=== PATIENT | female | born 1990 | race Caucasian/White ===

== ENCOUNTER 2017-08-13 15:03 | Emergency (ER) | payer OTHER ==
[2017-08-13 15:20] VITALS: BMI 26.3
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
[2017-08-13 16:59] LABS: HEMOGLOBIN 9.2 GM/dL (10.7-15.3); MCH 32.4 pg (25.7-33.7); MCHC 33.9 g/dl (32.0-36.0); MEAN CELL VOLUME 95.5 fl (80-96); MEAN PLT VOLUME 8.7 fl (7.5-11.1); PLATELET COUNT 264 K/MM3 (134-434); RBC 2.82 M/mm3 (3.60-5.2); RDW 12.3 % (11.6-15.6); WHITE BLOOD COUNT 11.8 K/mm3 (4.0-10.0)
[2017-08-13 17:09] LABS: ALBUMIN 2.6 g/dl (3.4-5.0); ANION GAP 8 (8-16); BLOOD UREA NITROGEN 10 mg/dL (7-18); CALCIUM 8.1 mg/dL (8.5-10.1); CHLORIDE 106 mmol/L (98-107); CO2 25 mmol/L (21-32); CREATININE 0.5 mg/dL (0.55-1.02); GLUCOSE,RANDOM 106 mg/dL (74-106); POTASSIUM 3.5 mmol/L (3.5-5.1); SGOT/AST 13 U/L (15-37); SGPT/ALT 25 U/L (12-78); SODIUM 139 mmol/L (136-145); TOT PROT 5.8 g/dl (6.4-8.2)
[2017-08-13 17:23] LABS: ALK PHOS 105 U/L (45-117)
[2017-08-13 17:26] LABS: BILIRUBIN,TOTAL < 0.1 mg/dL (0.2-1.0)
[2017-08-13 17:28] LABS: ARTERIAL BLD GAS O2 SATURATION 97.7 % (90-98.9); ARTERIAL BLOOD GAS BASE EXCESS 0.5 meq/l (-2-2); ARTERIAL BLOOD GAS PCO2 34.3 mmHg (35-45); ARTERIAL BLOOD GAS pH 7.45 (7.35-7.45)
[2017-08-13 17:29] LABS: ALLENS TEST POSITIVE
[2017-08-13 17:30] LABS: CARBOXYHEMOGLOBIN 1.8 gm% (0.5-2.0)
[2017-08-13 17:37] LABS: URINE APPEARANCE CLEAR; URINE BILIRUBIN NEGATIVE (<2.0 mg/dL); URINE BLOOD NEGATIVE (NEGATIVE); URINE COLOR LTYELLOW; URINE GLUCOSE (UA) NEGATIVE (NEGATIVE); URINE KETONE NEGATIVE (NEGATIVE); URINE LEUK ESTERASE NEGATIVE (NEGATIVE); URINE NITRITE NEGATIVE (NEGATIVE); URINE PROTEIN NEGATIVE (NEGATIVE); URINE UROBILINOGEN NEGATIVE mg/dL (0.2-1.0)
[2017-08-13 18:07] LABS: PLATELET ESTIMATE ADEQUATE
[2017-08-13 18:41] VITALS: BP 117/64; PULSE 102; TEMP 99.5
[2017-08-13] MEDS ORDERED: DEXTROSE 5%-LACTATED RINGERS 1,000 ML IV ONE (19:45)
[2017-08-13] MEDS ORDERED: ACETAMINOPHEN 325 MG TABLET (FP) ONE (20:29)
[2017-08-13] MEDS ORDERED: ACETAMINOPHEN 325 MG TABLET (FP) PO ONE (20:45)
--- NOTE | 2017-08-14 16:12 | EKG ---
Test Reason : Blood Pressure : / mmHG Vent. Rate : 101 BPM Atrial Rate : 101 BPM P-R Int : 140 ms QRS Dur : 084 ms QT Int : 324 ms P-R-T Axes : 056 061 051 degrees QTc Int : 420 ms SINUS TACHYCARDIA LEFT ATRIAL ENLARGEMENT OTHERWISE NORMAL ECG NO PREVIOUS ECGS AVAILABLE Confirmed by MD MARGIE, CARLOS ([id number]) on 08/14/2017 4:11:40 PM Referred By: Confirmed By:CARLOS HANSON MD
== END 2017-08-13 22:45 | disposition home or self-care (01) ==
LOC: JER 15:03
PROC: 3E0337Z Introduction of Electrolytic and Water Balance Substance into Peripheral Vein, Percutaneous Approach (ICD-10-PCS; principal; 2017-08-13)
DX: O99.89 Other specified diseases and conditions complicating pregnancy, childbirth and the puerperium (principal); T59.811A Toxic effect of smoke, accidental (unintentional), initial encounter; J70.5 Respiratory conditions due to smoke inhalation; Y92.038 Other place in apartment as the place of occurrence of the external cause; Z3A.33 33 weeks gestation of pregnancy
CPT/HCPCS: 36415; 36600; 76816-TC; 76830-TC; 80053; 81003; 82375; 82803; 83050; 84702; 85025; 93005; 93010; 96360; 96361; 99285-25

== ENCOUNTER 2017-09-26 07:02 | Inpatient (IN) | payer OTHER ==
[2017-09-26] MEDS: OXYTOCIN 20 UNITS in 0.9% NS 20 UNIT/1,000 ML INFUS.BAG IV SCH ×2 (07:16→09:00)
[2017-09-26 07:53] VITALS: BMI 28.3
[2017-09-26] MEDS ORDERED: WITCH HAZEL 50% (TUCKS) 40 PAD/JAR PAD TP PRN (07:54)
[2017-09-26] MEDS ORDERED: BENZOCAINE 20% 57 GM BOTTLE TP PRN (07:54)
[2017-09-26] MEDS ORDERED: BISACODYL 10 MG SUPP.RECT RC PRN (07:54)
[2017-09-26] MEDS ORDERED: BENZOCAINE 28 GM HEMORRHOIDAL OINTMENT PR PRN (07:54)
[2017-09-26] MEDS ORDERED: METHYLERGONOVINE MALEATE 0.2 MG/1 ML AMP IM PRN (07:54)
--- NOTE | 2017-09-26 07:58 | HP ---
Past Medical History - Primary Care Physician PCP:: Laurie Wynn - Admission Chief Complaint: LAbor History of Present Illness: 27 EDC 09/29/17 EGA 39.4 weeks who came in fully dilated in labor with hx short cervix on progesterone History Source: Patient - Past Medical History ...: 2 ...Para: 1 ...Term: 1 ...: 0 ...Spon : 0 ...Induced : 0 ...Multiple Gestation: 0 ...LMP: 12/31/16 ... Weeks Gestation by Dates: 38.3 ...EDC by Dates: 10/07/17 ...EDC by Sono: 09/29/17 - Past Surgical History Past Surgical History: Yes: None Hx Myomectomy: No Hx Transabdominal Cerclage: No - Smoking History Smoking history: Never smoked Have you smoked in the past 12 months: No - Alcohol/Substance Use Hx Alcohol Use: No History of Substance Use: reports: None - Social History Usual Living Arrangement: Yes: With Spouse History of Recent Travel: No Home Medications - Allergies Allergies/Adverse Reactions: Allergies Allergy/AdvReac Type Severity Reaction Status Date / Time No Known Allergies Allergy Verified 08/13/17 18:38 - Home Medications Home Medications: Ambulatory Orders Vit/Iron Fum/Folic AC [ Tablet] 1 tab PO DAILY 08/10/17 Progesterone, Micronized [Progesterone] 200 mg PO DAILY 08/10/17 Review of Systems - Review of Systems Constitutional: reports: No Symptoms Eyes: reports: No Symptoms HENT: reports: No Symptoms Neck: reports: No Symptoms Cardiovascular: reports: No Symptoms Respiratory: reports: No Symptoms Gastrointestinal: reports: No Symptoms Genitourinary: reports: No Symptoms Breasts: reports: No Symptoms Reported Musculoskeletal: reports: No Symptoms Integumentary: reports: No Symptoms Neurological: reports: No Symptoms Endocrine: reports: No Symptoms Hematology/Lymphatic: reports: No Symptoms Psychiatric: reports: No Symptoms Hemorrhage Risk Assessment - Risk Factors Risk Score: 0 Risk Level: Low Risk Problem List - Problems (1) Labor established Code(s): [id number] - Assessment/Plan iup at 39.4 week labor Plan precipatous delivery
[2017-09-26] MEDS ORDERED: ACETAMINOPHEN 325 MG TABLET (FP) ONE (08:12)
[2017-09-26] MEDS ORDERED: IBUPROFEN 600 MG TABLET (FP) PO ONE (08:12)
[2017-09-26] MEDS: IBUPROFEN 600 MG TABLET (FP) PO PRN ×2 (08:14→15:32)
[2017-09-26] MEDS: ACETAMINOPHEN 325 MG TABLET (FP) PO PRN ×2 (08:15→15:32)
[2017-09-26 08:19] LABS: BASO % 0.2 % (0-2.0); EOS % 0.3 % (0-4.5); HEMATOCRIT 31.8 % (32.4-45.2); HEMOGLOBIN 10.8 GM/dL (10.7-15.3); LYMPH % 18.9 % (8-40); MCH 31.7 pg (25.7-33.7); MEAN PLT VOLUME 9.2 fl (7.5-11.1); MONO % 4.1 % (3.8-10.2); NEUT % 76.5 % (42.8-82.8); PLATELET COUNT 206 K/MM3 (134-434); RBC 3.42 M/mm3 (3.60-5.2); RDW 12.8 % (11.6-15.6); WHITE BLOOD COUNT 11.8 K/mm3 (4.0-10.0)
[2017-09-26 08:28] LABS: INR 0.98 (0.82-1.09); PROTHROMBIN TIME (PATIENT) 11.1 SEC (9.7-13.0)
[2017-09-26 08:31] LABS: ACTIVATED PTT 23.8 SECONDS (26.9-34.4)
[2017-09-26 08:32] LABS: ARTERIAL BLD GAS O2 SATURATION 22.2 % (90-98.9); ARTERIAL BLOOD GAS PCO2 48.3 mmHg (35-45); ARTERIAL BLOOD GAS pH 7.32 (7.35-7.45)
[2017-09-26 08:33] LABS: ARTERIAL BLOOD GAS BASE EXCESS -2.1 meq/l (-2-2)
[2017-09-26] MEDS ORDERED: OXYTOCIN 20 UNITS in 0.9% NS 20 UNIT/1,000 ML INFUS.BAG IV ONE (08:34)
[2017-09-26 08:35] LABS: VENOUS PC02 37.4 mmHg (38-52); VENOUS PH 7.4 (7.32-7.42); VENOUS PO2 27.8 mmHg (28-48)
[2017-09-26 08:37] LABS: ANION GAP 11 (8-16); BLOOD UREA NITROGEN 8 mg/dL (7-18); CALCIUM 8.2 mg/dL (8.5-10.1); CHLORIDE 106 mmol/L (98-107); CO2 21 mmol/L (21-32); CREATININE 0.8 mg/dL (0.55-1.02); GLUCOSE,RANDOM 83 mg/dL (74-106); SODIUM 138 mmol/L (136-145)
[2017-09-26 08:38] LABS: ARTERIAL BLOOD GAS PO2 15.6 mmHg (80-100)
--- NOTE | 2017-09-26 09:38 | PN ---
Delivery - Delivery Vaginal Delivery: No Problems (Precipitous delivery laborist delivered) Type of Anesthesia: None Episiotomy/Laceration: None EBL (cc): 300 Delivery, Single - Stages of Labor Date 1st Stage Initiatied: 09/26/17 Time 1st Stage Initiated: 06:00 Date of Delivery: 09/26/17 Time of Delivery: 07:05 Time Placenta Delivered: 07:16 Placenta: Yes: Spontaneous - Condition of Infant Associate Programmer Analyst/Occupational Safety And Health Manager Present: No Gender: Female Weight: 7 lb 1 oz Position: Right, OA Total Hours ROM (Hrs/Mins): 0hrs 46min - 1 Minute Total Score: 9 5 Minutes Total Score: 9 - Feeding Plan Initial Plan: Elected not to breastfeed exclusively throughout hospitalization
[2017-09-26] MEDS ORDERED: DIPHTH,PERTUSS(ACELL),TET 0.5 ML DISP.SYRIN IM ONE (22:00)
[2017-09-27 08:58] LABS: BASO % 0.3 % (0-2.0); EOS % 0.8 % (0-4.5); HEMATOCRIT 28.4 % (32.4-45.2); HEMOGLOBIN 9.6 GM/dL (10.7-15.3); LYMPH % 29.7 % (8-40); MCH 31.8 pg (25.7-33.7); MCHC 33.8 g/dl (32.0-36.0); MEAN CELL VOLUME 93.9 fl (80-96); MONO % 4.6 % (3.8-10.2); NEUT % 64.6 % (42.8-82.8); PLATELET COUNT 179 K/MM3 (134-434); RBC 3.03 M/mm3 (3.60-5.2); RDW 13.3 % (11.6-15.6); WHITE BLOOD COUNT 9.9 K/mm3 (4.0-10.0)
--- NOTE | 2017-09-27 10:14 | PN ---
Post Note - Post Date of Delivery: 09/26/17 Post Day: 1 Vital Signs: Vital Signs - 24 hr 09/26/17 09/26/17 09/26/17 14:00 18:00 21:38 Temperature 98.5 F 98.8 F 98.4 F Pulse Rate 67 98 H 67 Respiratory 20 18 18 Rate Blood Pressure 120/57 117/63 131/64 09/27/17 09/27/17 09/27/17 02:00 06:00 08:30 Temperature 98.2 F 98.1 F 98.4 F Pulse Rate 56 L 60 78 Respiratory 18 20 18 Rate Blood Pressure 114/67 115/69 118/71 Labs: Laboratory Results - last 24 hr 09/27/17 08:00 WBC 9.9 RBC 3.03 L Hgb 9.6 L D Hct 28.4 L MCV 93.9 MCH 31.8 MCHC 33.8 RDW 13.3 Plt Count 179 MPV 9.0 Neutrophils % 64.6 Lymphocytes % 29.7 D Monocytes % 4.6 Eosinophils % 0.8 D Basophils % 0.3 - Subjective Subjective: No Complaints - Objective Afebrile: Yes Breast: Not engorged Abdomen: Soft, Non-tender Uterus: Fundus firm Vagina: Scant lochia Extremities: Non-tender - Assessment/Plan (1) Labor established Assessment: S/P Normal , Other (anemia - 28 %) Plan: Routine Care
[2017-09-27] MEDS: ACETAMINOPHEN 325 MG TABLET (FP) PO PRN (16:08)
[2017-09-27] MEDS: IBUPROFEN 600 MG TABLET (FP) PO PRN (16:09)
[2017-09-27 22:16] VITALS: TEMP 98.3
[2017-09-28 09:36] VITALS: BP 117/71; PULSE 74
== END 2017-09-28 12:00 | disposition home or self-care (01) | DRG 560 ==
LOC: JLDR 07:02 → J3W 09:30
PROVIDERS: ADMIT Obstetrics & Gynecology; ATTEND Obstetrics & Gynecology
PROC: 10E0XZZ Delivery of Products of Conception, External Approach (ICD-10-PCS; principal; 2017-09-26)
DX: O62.3 Precipitate labor (principal); O26.873 Cervical shortening, third trimester; O99.02 Anemia complicating childbirth; D64.9 Anemia, unspecified; Z3A.39 39 weeks gestation of pregnancy; Z37.0 Single live birth
CPT/HCPCS: 36415; 36600; 59409; 80048; 82803; 85025; 85610; 85730; 86480; 86593; 86850; 86900; 86901; 90715

== ENCOUNTER 2019-01-23 05:45 | Emergency (ER) | payer OTHER ==
[2019-01-23 06:14] VITALS: BMI 22.6
[2019-01-23] MEDS ORDERED: SODIUM CHLORIDE 1,000 ML IV STA (06:15)
[2019-01-23] MEDS ORDERED: ONDANSETRON 4 MG/2 ML VIAL IVPUSH ONE (06:15)
[2019-01-23] MEDS ORDERED: morphine CARPU-JECT 4 MG/1 ML DISP.SYRIN IVPUSH ONE (06:15)
--- NOTE | 2019-01-23 06:16 | PDOC ---
History of Present Illness - General Chief Complaint: Pain, Acute Stated Complaint: ABD PAIN, VOMITING Time Seen by Provider: 01/23/19 06:15 History Source: Patient Exam Limitations: No Limitations - History of Present Illness Travel History: No Initial Comments: 01/23/19 06:17 HISTORY OF PRESENT ILLNESS: 28-year-old woman and denies medical history presents emergency department for evaluation of sudden onset epigastric and right upper quadrant pain starting at approximately 4:00 this morning. Patient reports the pain was 8/10 which she describes as a squeezing pulling sensation which woke her from sleep at approximately 4 AM. She reports she felt mild nausea with vomiting of undigested food which was nonbilious nonbloody. Patient denies fevers, chills, chest pain, shortness of breath, dysuria, hematuria, rectal bleeding, constipation, diarrhea, vaginal bleeding or vaginal discharge. LMP 12/29/18. No recent travel or sick contacts. PAST MEDICAL HISTORY: Denies past medical history SURGICAL HISTORY: Denies ALLERGIES: No known drug allergies REVIEW OF SYSTEMS General/Constitutional: Denies fever or chills. Denies weakness, weight change. HEENT: Denies change in vision. Denies ear pain or discharge. Denies sore throat. Cardiovascular: Denies chest pain or shortness of breath. Respiratory: Denies cough, wheezing, or hemoptysis. Gastrointestinal: see HPI Genitourinary: Denies dysuria, frequency, or change in urination. Musculoskeletal: Denies joint or muscle swelling or pain. Denies neck or back pain. Skin and breasts: Denies rash or easy bruising. Neurologic: Denies headache, vertigo, loss of consciousness, or loss of sensation. Psychiatric: Denies depression or anxiety. Endocrine: Denies increased thirst. Denies abnormal weight change. Hematologic/Lymphatic: Denies anemia, easy bleeding, or history of blood clots. Allergic/Immunologic: Denies hives or skin allergy. Denies latex allergy. PHYSICAL EXAM General Appearance: Well-appearing, appropriately dressed. No apparent distress , no intoxication. Respiratory/Chest: Lungs CTAB. No shortness of breath, chest tenderness, respiratory distress, accessory muscle use. No crackles, rales, rhonchi, stridor , wheezing, dullness Cardiovascular: RRR. S1, S2. No JVD, murmur, bradycardia, tachycardia. Gastrointestinal/Abdominal: Normal bowel sounds. Abdomen soft, non-distended. Abdomen tender in the epigastrium and right upper quadrant. Guarding present. No organomegaly, pulsatile mass, hernia, hepatomegaly, splenomegaly. Integumentary: Appropriate color, dry, warm. No cyanosis, erythema, jaundice or rash Past History - Past Medical History Allergies/Adverse Reactions: Allergies Allergy/AdvReac Type Severity Reaction Status Date / Time No Known Allergies Allergy Verified 09/26/17 08:17 Home Medications: Ambulatory Orders Vit/Iron Fum/Folic AC [ Tablet] 1 tab PO DAILY 08/10/17 Ibuprofen [Motrin -] 600 mg PO QID #28 tablet 09/27/17 Asthma: No Cancer: No Cardiac Disorders: No CVA: No COPD: No Diabetes: No HTN: No Seizures: No Thyroid Disease: No - Suicide/Smoking/Psychosocial Hx Smoking History: Current some day smoker Have you smoked in the past 12 months: No Information on smoking cessation initiated: No Hx Alcohol Use: No Drug/Substance Use Hx: No Hx Substance Use Treatment: No *Physical Exam - Vital Signs Last Vital Signs Temp Pulse Resp BP Pulse Ox 98.1 F 89 18 123/72 100 01/23/19 05:58 01/23/19 05:58 01/23/19 05:58 01/23/19 05:58 01/23/19 05:58 ED Treatment Course - LABORATORY CBC & Chemistry Diagram: 01/23/19 06:27 01/23/19 06:27 Medical Decision Making - Medical Decision Making 01/23/19 06:20 A/P: 28-year-old woman with right upper quadrant pain Differential diagnosis includes but is not limited to-gallstones, cholecystitis , pancreatitis, GERD, pneumonia, musculoskeletal pain CBC, CMP, lipase Urinalysis, urine culture, urine GB ultrasound EKG Normal saline 1 L IV bolus Morphine 4 mg IV Zofran 4 mg IV Reassess 01/23/19 07:10 Pt signed out to SAGAR Montilla. *DC/Admit/Observation/Transfer Diagnosis at time of Disposition: RUQ abdominal pain - Referrals Referrals: Tim Sterling MD [Primary Care Provider] - - Patient Instructions - Post Discharge Activity
--- NOTE | 2019-01-23 06:16 | PDOC ---
*Physical Exam - Vital Signs Last Vital Signs Temp Pulse Resp BP Pulse Ox 98.1 F 89 18 123/72 100 01/23/19 05:58 01/23/19 05:58 01/23/19 05:58 01/23/19 05:58 01/23/19 05:58 Medical Decision Making - Medical Decision Making 01/23/19 06:16 Patient seen by the advanced practice provider under my direct supervision. Ancillary testing reviewed as necessary. I agree with plan as outlined by the advanced practice provider. *DC/Admit/Observation/Transfer Diagnosis at time of Disposition: RUQ abdominal pain - Referrals Referrals: Tim Sterling MD [Primary Care Provider] - - Patient Instructions - Post Discharge Activity
[2019-01-23] MEDS ORDERED: morphine SULFATE 4 MG/ML VIAL ONE (06:29)
[2019-01-23] MEDS ORDERED: ONDANSETRON 4 MG/2 ML VIAL ONE (06:30)
[2019-01-23 06:33] LABS: BASO % 0.3 % (0-2.0); EOS % 1.8 % (0-4.5); HEMATOCRIT 34.6 % (32.4-45.2); HEMOGLOBIN 11.6 GM/dL (10.7-15.3); LYMPH % 26.2 % (8-40); MCH 29.8 pg (25.7-33.7); MCHC 33.6 g/dl (32.0-36.0); MEAN CELL VOLUME 88.7 fl (80-96); MEAN PLT VOLUME 8.6 fl (7.5-11.1); MONO % 5.5 % (3.8-10.2); NEUT % 66.2 % (42.8-82.8); PLATELET COUNT 261 K/MM3 (134-434); RDW 13.5 % (11.6-15.6); WHITE BLOOD COUNT 7.5 K/mm3 (4.0-10.0)
[2019-01-23 06:50] LABS: ALBUMIN 3.7 g/dl (3.4-5.0); BILIRUBIN,TOTAL 0.3 mg/dL (0.2-1); BLOOD UREA NITROGEN 14.8 mg/dL (7-18); CALCIUM 8.6 mg/dL (8.5-10.1); CREATININE 0.8 mg/dL (0.55-1.3); POTASSIUM 3.8 mmol/L (3.5-5.1); TOT PROT 6.6 g/dl (6.4-8.2)
--- NOTE | 2019-01-23 07:28 | PDOC ---
*Physical Exam - Vital Signs Last Vital Signs Temp Pulse Resp BP Pulse Ox 98.1 F 89 18 123/72 100 01/23/19 05:58 01/23/19 05:58 01/23/19 05:58 01/23/19 05:58 01/23/19 05:58 <Gigi Duran - Last Filed: 01/23/19 07:44> - Vital Signs Last Vital Signs Temp Pulse Resp BP Pulse Ox 98.1 F 89 18 123/72 100 01/23/19 05:58 01/23/19 05:58 01/23/19 05:58 01/23/19 05:58 01/23/19 05:58 - Physical Exam General Appearance: Yes: Appropriately Dressed. No: Apparent Distress Neck: positive: Supple Respiratory/Chest: negative: Respiratory Distress Gastrointestinal/Abdominal: positive: Normal Bowel Sounds, Soft. negative: Tender, Distended, Guarding, Rebound Musculoskeletal: negative: CVA Tenderness Integumentary: positive: Dry, Warm Neurologic: positive: Fully Oriented, Alert, Normal Mood/Affect <Jamil Montilla - Last Filed: 01/23/19 10:27> Heart Score/ECG Review #1 ECG reviewed & interpreted by me at: 07:29 General ECG Interpretation: Sinus Rhythm, Normal Rate (73), Normal Intervals ( qtc 431), No acute ischemic changes <Gigi Duran - Last Filed: 01/23/19 07:44> ED Treatment Course - LABORATORY CBC & Chemistry Diagram: 01/23/19 06:27 01/23/19 06:27 - ADDITIONAL ORDERS Additional order review: Laboratory Results 01/23/19 01/23/19 06:27 06:27 Sodium 142 Potassium 3.8 Chloride 107 Carbon Dioxide 27 Anion Gap 8 BUN 14.8 Creatinine 0.8 Est GFR (CKD-EPI)AfAm 117.93 Est GFR (CKD-EPI)NonAf 101.75 Random Glucose 99 Calcium 8.6 Total Bilirubin 0.3 AST 115 H ALT 84 H Alkaline Phosphatase 82 Total Protein 6.6 Albumin 3.7 Lipase 101 01/23/19 06:27 RBC 3.90 MCV 88.7 MCHC 33.6 RDW 13.5 MPV 8.6 Neutrophils % 66.2 Lymphocytes % 26.2 Monocytes % 5.5 Eosinophils % 1.8 D Basophils % 0.3 - Medications Given in the ED: ED Medications Discontinued Medications Generic Name Dose Route Start Last Admin Trade Name Freq PRN Reason Stop Dose Admin Sodium Chloride 1,000 mls @ 1,000 mls/hr 01/23/19 06:15 01/23/19 06:34 Normal Saline - IV 01/23/19 07:14 1,000 mls/hr ASDIR STA Administration Morphine Sulfate 4 mg 01/23/19 06:15 01/23/19 06:33 Morphine Injection - IVPUSH 01/23/19 06:16 4 mg ONCE ONE Administration Ondansetron HCl 4 mg 01/23/19 06:15 01/23/19 06:34 Zofran Injection IVPUSH 01/23/19 06:16 4 mg ONCE ONE Administration <Gigi Duran - Last Filed: 01/23/19 07:44> - LABORATORY CBC & Chemistry Diagram: 01/23/19 06:27 01/23/19 06:27 - ADDITIONAL ORDERS Additional order review: Laboratory Results 01/23/19 01/23/19 06:27 06:27 Sodium 142 Potassium 3.8 Chloride 107 Carbon Dioxide 27 Anion Gap 8 BUN 14.8 Creatinine 0.8 Est GFR (CKD-EPI)AfAm 117.93 Est GFR (CKD-EPI)NonAf 101.75 Random Glucose 99 Calcium 8.6 Total Bilirubin 0.3 AST 115 H ALT 84 H Alkaline Phosphatase 82 Total Protein 6.6 Albumin 3.7 Lipase 101 01/23/19 06:27 RBC 3.90 MCV 88.7 MCHC 33.6 RDW 13.5 MPV 8.6 Neutrophils % 66.2 Lymphocytes % 26.2 Monocytes % 5.5 Eosinophils % 1.8 D Basophils % 0.3 - Medications Given in the ED: ED Medications Discontinued Medications Generic Name Dose Route Start Last Admin Trade Name Freq PRN Reason Stop Dose Admin Sodium Chloride 1,000 mls @ 1,000 mls/hr 01/23/19 06:15 01/23/19 06:34 Normal Saline - IV 01/23/19 07:14 1,000 mls/hr ASDIR STA Administration Morphine Sulfate 4 mg 01/23/19 06:15 01/23/19 06:33 Morphine Injection - IVPUSH 01/23/19 06:16 4 mg ONCE ONE Administration Ondansetron HCl 4 mg 01/23/19 06:15 01/23/19 06:34 Zofran Injection IVPUSH 01/23/19 06:16 4 mg ONCE ONE Administration <IrishJamil - Last Filed: 01/23/19 10:27> Medical Decision Making - Medical Decision Making 01/23/19 07:27 Pt signed out to me at 7 AM Patient is a 28-year-old female, no significant history, here with right upper quadrant and epigastric pain. Per prior team, patient appeared very uncomfortable on initial eval and has since been given pain meds. Labs and ultrasound pending 01/23/19 09:24 Pt s/p RUQ sono. On reassessment, states pain has since resolved with meds. No additional sxs at this time. Abdomen benign on rpt exam. Labs unremarkable. UA pending 01/23/19 10:24 US read as neg. Pt remains asx at this time w/ benign abd. Will dc w/ pepcid and maalox for ? gastritis. To f/u with her PMD <Jamil Montilla - Last Filed: 01/23/19 10:27> *DC/Admit/Observation/Transfer <Gigi Duran - Last Filed: 01/23/19 07:44> <Jamil Montilla - Last Filed: 01/23/19 10:27> Diagnosis at time of Disposition: RUQ abdominal pain - Discharge Dispostion Disposition: HOME Condition at time of disposition: Improved - Prescriptions Prescriptions: Famotidine [Pepcid] 20 mg PO DAILY #14 tablet Mag Hydrox/Al Hydrox/Simeth [Mylanta Suspension -] 30 ml PO Q6H #1 bottle - Referrals Referrals: Tim Sterling MD [Primary Care Provider] - - Patient Instructions Printed Discharge Instructions: Gastritis Additional Instructions: Your ultrasound was normal here. We have started you on Pepcid and Maalox for possible gastritis. Please follow-up with your PMD for further evaluation - Post Discharge Activity Forms/Work/School Notes: Back to Work
[2019-01-23 09:26] LABS: EPI CELLS 6.8 /HPF (0-5/HPF); HYALINE CASTS 6 /lpf (0-8); PH,URINE 6.5 (5.0-8.0); URINE APPEARANCE CLOUDY; URINE BACTERIA 111.3 /hpf (NEGATIVE); URINE BILIRUBIN NEGATIVE (NEGATIVE); URINE COLOR YELLOW; URINE GLUCOSE (UA) NEGATIVE (NEGATIVE); URINE KETONE NEGATIVE (NEGATIVE); URINE LEUK ESTERASE 1+ (NEGATIVE); URINE NITRITE NEGATIVE (NEGATIVE); URINE PROTEIN NEGATIVE (NEGATIVE); URINE RBC 8 /hpf (0-4); URINE UROBILINOGEN 0.2 mg/dL (0.2-1.0); URINE WBC 7 /hpf (0-5)
--- NOTE | 2019-01-23 10:49 | EKG ---
Test Reason : Blood Pressure : / mmHG Vent. Rate : 073 BPM Atrial Rate : 073 BPM P-R Int : 148 ms QRS Dur : 086 ms QT Int : 392 ms P-R-T Axes : 071 073 057 degrees QTc Int : 431 ms NORMAL SINUS RHYTHM WITH SINUS ARRHYTHMIA NORMAL ECG WHEN COMPARED WITH ECG OF 13-AUG-2017 17:01, NO SIGNIFICANT CHANGE WAS FOUND Confirmed by Dejuan Mireles MD ([id number]) on 01/23/2019 10:49:11 AM Referred By: Confirmed By:Dejuan Mireles MD
[2019-01-23 10:51] VITALS: BP 126/72; PULSE 84; TEMP 97.9
== END 2019-01-23 10:45 | disposition home or self-care (01) ==
LOC: JER 05:45
PROC: 3E033NZ Introduction of Analgesics, Hypnotics, Sedatives into Peripheral Vein, Percutaneous Approach (ICD-10-PCS; principal; 2019-01-23)
PROC: 3E033GC Introduction of Other Therapeutic Substance into Peripheral Vein, Percutaneous Approach (ICD-10-PCS; 2019-01-23)
DX: R10.11 Right upper quadrant pain (principal)
CPT/HCPCS: 36415; 76705-TC; 80053; 81003; 83690; 84703; 85025; 87086; 93005; 93010; 96374; 96375; 99283-25; J7030

== ENCOUNTER 2021-10-17 12:46 | Emergency (ER) | payer OTHER ==
[2021-10-17 13:00] VITALS: TEMP 98.6; BMI 24.1
[2021-10-17] MEDS ORDERED: ONDANSETRON 4 MG/2 ML VIAL IVPUSH ONE (13:08)
[2021-10-17] MEDS ORDERED: MAG HYDROX/AL HYDROX/SIMETH 30 ML UNIT-DOSE CUP PO ONE (13:08)
[2021-10-17] MEDS ORDERED: FAMOTIDINE 20 MG/50 ML IVPB 20 MG/50 ML MG IVPB ONE (13:08)
[2021-10-17] MEDS ORDERED: SODIUM CHLORIDE 0.9% 500 ML INFUS.BAG IV ONE (13:08)
[2021-10-17] MEDS ORDERED: ONDANSETRON 4 MG/2 ML VIAL ONE (13:09)
[2021-10-17] MEDS ORDERED: FAMOTIDINE 10 MG/ML VIAL IVPB ONE (13:09)
[2021-10-17] MEDS ORDERED: MAG HYDROX/AL HYDROX/SIMETH 30 ML UNIT-DOSE CUP ONE (13:09)
[2021-10-17] MEDS ORDERED: ACETAMINOPHEN 1000 MG/100 ML BAG IVPB ONE (13:15)
[2021-10-17] MEDS ORDERED: ACETAMINOPHEN INJECTION 100 ML IVPB ONE (13:19)
[2021-10-17 13:59] LABS: BASO % 0.3 % (0-2.0); EOS % 0.4 % (0-4.5); HEMATOCRIT 38.9 % (32.4-45.2); HEMOGLOBIN 12.9 GM/dL (10.7-15.3); LYMPH % 15.6 % (8-40); MCH 29.8 pg (25.7-33.7); MCHC 33.1 g/dl (32.0-36.0); MEAN CELL VOLUME 89.8 fl (80-96); MEAN PLT VOLUME 8.5 fl (7.5-11.1); MONO % 5.3 % (3.8-10.2); NEUT % 78.4 % (42.8-82.8); PLATELET COUNT 272 10^3/uL (134-434); RBC 4.33 M/mm3 (3.60-5.2); RDW 13.5 % (11.6-15.6); WHITE BLOOD COUNT 6.8 K/mm3 (4.0-10.0)
[2021-10-17 14:11] LABS: BLOOD UREA NITROGEN 20.3 mg/dL (7-18); CALCIUM 8.8 mg/dL (8.5-10.1)
[2021-10-17 14:15] LABS: CREATININE 0.8 mg/dL (0.55-1.3)
[2021-10-17 14:16] LABS: BILIRUBIN,TOTAL 0.6 mg/dL (0.2-1); TOT PROT 7.3 g/dl (6.4-8.2)
[2021-10-17 15:01] VITALS: BP 101/63; PULSE 87
== END 2021-10-17 15:01 | disposition home or self-care (01) ==
LOC: JER 12:46
PROC: 3E0333Z Introduction of Anti-inflammatory into Peripheral Vein, Percutaneous Approach (ICD-10-PCS; principal; 2021-10-17)
PROC: 3E033GC Introduction of Other Therapeutic Substance into Peripheral Vein, Percutaneous Approach (ICD-10-PCS; 2021-10-17)
PROC: 3E033GC Introduction of Other Therapeutic Substance into Peripheral Vein, Percutaneous Approach (ICD-10-PCS; 2021-10-17)
DX: R11.2 Nausea with vomiting, unspecified (principal)
CPT/HCPCS: 36415; 80053; 83690; 83735; 84703; 85025; 99284-25

== ENCOUNTER 2022-04-21 18:07 | Emergency (ER) | payer OTHER ==
[2022-04-21 18:24] VITALS: BP 105/71; PULSE 117; RESP 19; TEMP 99; BMI 22.6
[2022-04-21] MEDS ORDERED: SODIUM CHLORIDE 0.9% 500 ML INFUS.BAG IV ONE (19:27)
[2022-04-21] MEDS ORDERED: ACETAMINOPHEN 1000 MG/100 ML BAG IVPB ONE (19:27)
[2022-04-21] MEDS ORDERED: ONDANSETRON 4 MG/2 ML VIAL IVPUSH ONE (19:27)
[2022-04-21] MEDS ORDERED: ACETAMINOPHEN INJECTION 100 ML IVPB ONE (20:03)
[2022-04-21] MEDS ORDERED: ONDANSETRON 4 MG/2 ML VIAL ONE (20:03)
[2022-04-21 20:18] LABS: HEMATOCRIT 39.6 % (32.4-45.2); MCH 29.8 pg (25.7-33.7); MCHC 32.7 g/dl (32.0-36.0); MEAN CELL VOLUME 91.3 fl (80-96); MEAN PLT VOLUME 8.8 fl (7.5-11.1); PLATELET COUNT 306 10^3/uL (134-434); RBC 4.34 M/mm3 (3.60-5.2); RDW 13.2 % (11.6-15.6); WHITE BLOOD COUNT 8.2 K/mm3 (4.0-10.0)
[2022-04-21 20:28] LABS: PH,URINE 6.5 (5.0-8.0); URINE APPEARANCE CLEAR; URINE BILIRUBIN NEGATIVE (NEGATIVE); URINE COLOR YELLOW; URINE GLUCOSE (UA) NEGATIVE (NEGATIVE); URINE KETONE 1+ (NEGATIVE); URINE LEUK ESTERASE NEGATIVE (NEGATIVE); URINE NITRITE NEGATIVE (NEGATIVE); URINE PROTEIN NEGATIVE (NEGATIVE)
[2022-04-21 20:31] LABS: HCG,QUALITATIVE URINE Negative
[2022-04-21 20:39] LABS: CALCIUM 8.9 mg/dL (8.5-10.1)
[2022-04-21 20:41] LABS: ALBUMIN 3.9 g/dl (3.4-5.0); BLOOD UREA NITROGEN 19.8 mg/dL (7-18)
[2022-04-21 20:44] LABS: CREATININE 0.8 mg/dL (0.55-1.3)
[2022-04-21 20:45] LABS: BILIRUBIN,TOTAL 0.5 mg/dL (0.2-1)
[2022-04-21 20:46] LABS: TOT PROT 7.3 g/dl (6.4-8.2)
[2022-04-21 21:17] LABS: ANISOCYTOSIS 0; HELMET CELLS 0; HOWELL-JOLLY BODIES 0; MACROCYTOSIS 0; OVALOCYTE 0; PLATELET ESTIMATE NORMAL; ROULEAU 0; SICKELED CELLS 0; TARGET CELLS 0; TEAR DROP CELLS 0; TOXIC GRANULATION 0
== END 2022-04-21 21:59 | disposition home or self-care (01) ==
LOC: JER 18:07
PROC: 3E033GC Introduction of Other Therapeutic Substance into Peripheral Vein, Percutaneous Approach (ICD-10-PCS; principal; 2022-04-21)
DX: A08.4 Viral intestinal infection, unspecified (principal)
CPT/HCPCS: 0241U-QW; 36415; 80053; 81003; 83690; 84703; 85025; 87086; 87186; 93005; 93010; 99284-25